=== PATIENT | male | born 1970 | race Caucasian/White ===

== ENCOUNTER 2016-08-31 07:42 | Emergency (ER) | payer OTHER ==
[2016-08-31 08:49] LABS: BASOPHIL 0.6 % (0-2); EOSINOPHIL 2.8 % (0-5); HCT 43.4 % (42.0-52.0); HGB 15.1 g/dl (13.2-18.0); LYMPHOCYTE 14.7 % (15-48); MCH 33.7 pg (25.0-31.0); MCHC 34.8 g/dL (32.0-36.0); MCV 96.9 fL (78.0-100.0); MONOCYTE 11.9 % (0-12); MPV 11.2 fL (6.0-9.5); PLT 189 K/uL (150-400); RBC 4.48 M/uL (4.70-6.00); RDW 13.1 % (11.5-14.0); WBC 6.8 K/uL (4.0-10.5)
[2016-08-31 08:58] LABS: ALBUMIN 4.5 g/dL (3.5-5.0); BILIRUBIN - TOTAL 0.4 mg/dL (0.1-1.0); CREATININE 0.7 mg/dL (0.7-1.2); GLOBULIN (CALCULATION) 2.3 g/dL (2.2-4.2); TOTAL PROTEIN 6.8 g/dL (6.4-8.3)
== END 2016-08-31 10:10 | disposition home or self-care (01) ==
LOC: FER 07:42
PROVIDERS: Emergency Medicine
DX: E86.0 Dehydration (principal); I10 Essential (primary) hypertension; F17.200 Nicotine dependence, unspecified, uncomplicated; Z82.49 Family history of ischemic heart disease and other diseases of the circulatory system; Z82.3 Family history of stroke; Z79.899 Other long term (current) drug therapy
CPT/HCPCS: 36415; 80053; 85025; 93005

== ENCOUNTER 2022-01-02 13:32 | Emergency (ER) | payer OTHER ==
[2022-01-02 16:05] LABS: BASOPHIL 0.8 % (0-2); EOSINOPHIL 2.8 % (0-5); HCT 37.5 % (42.0-52.0); HGB 12.7 g/dl (13.2-18.0); LYMPHOCYTE 16.7 % (15-48); MCH 34.1 pg (25.0-31.0); MCHC 33.9 g/dL (32.0-36.0); MCV 100.8 fL (78.0-100.0); MONOCYTE 7.3 % (0-12); MPV 10.6 fL (6.0-9.5); NEUTROPHIL 71.9 % (41-80); NRBC 0; PLT 174 K/uL (150-400); RBC 3.72 M/uL (4.70-6.00); RDW 12.5 % (11.5-14.0); WBC 8.5 K/uL (4.0-10.5)
[2022-01-02 16:33] LABS: ALBUMIN 3.4 g/dL (3.4-5.0); BILIRUBIN - TOTAL 0.5 mg/dL (0.2-1.0); BUN/CREAT RATIO (CALC) 11.4 RATIO; CREATININE 0.88 mg/dL (0.67-1.17); GLOBULIN (CALCULATION) 3.3 g/dL; POTASSIUM 3.5 mmol/L (3.5-5.1); TOTAL PROTEIN 6.7 g/dL (6.4-8.2)
== END 2022-01-02 17:13 | disposition left against medical advice (07) ==
LOC: FER 13:32
PROVIDERS: Physician Assistant
DX: R07.89 Other chest pain (principal); I10 Essential (primary) hypertension; F17.210 Nicotine dependence, cigarettes, uncomplicated; Z28.310 Unvaccinated for COVID-19; Z53.29 Procedure and treatment not carried out because of patient's decision for other reasons; Z79.899 Other long term (current) drug therapy; Z88.0 Allergy status to penicillin
CPT/HCPCS: 36415; 71045; 80053; 84145; 84484; 85025; 93005